=== PATIENT | male | born 1980 | race Caucasian/White ===

== ENCOUNTER 2018-12-17 20:25 | Emergency (ER) | payer SELFPAY ==
[2018-12-17] MEDS ORDERED: Ketorolac Tromethamine 30 MG/ML VIAL ONE (20:48)
--- NOTE | 2018-12-17 21:10 | RAD ---
LEFT SHOULDER THREE VIEW 12/17/18 HISTORY: Shoulder pain. COMPARISON: None. FINDINGS: There is likely an old proximal humeral metadiaphyseal fracture. Possibly some heterotopic ossificati on and periosteal new bone formation on the lateral margin of the humerus in expected location of the deltoid insertion. Glenohumeral alignment is normal. Acromioclavicular joint is normal. The visualized ribs are unremark able. IMPRESSION: Evidence of prior trauma to the left humerus. If there is no history of prior trauma or fracture, a followup CT or MRI is recommended with contrast. POS: JULIETTE
== END 2018-12-17 21:57 | disposition home or self-care (01) ==
LOC: ERS 20:25
DX: M25.512 Pain in left shoulder (principal); F17.210 Nicotine dependence, cigarettes, uncomplicated; Z79.899 Other long term (current) drug therapy
CPT/HCPCS: 96372; J1885

== ENCOUNTER 2021-03-24 14:35 | Emergency (ER) | payer SELFPAY ==
[2021-03-24] MEDS ORDERED: Lidocaine Viscous Sol 2% 15 ml UD Cup ONE (15:07)
[2021-03-24] MEDS ORDERED: Mag-Al 1200 mg/1200 mg/30 ML UDCUP ONE (15:07)
[2021-03-24 15:33] LABS: #Basophils 0.1 thou/uL (0.0-0.2); #Eosinphils 0.2 thou/uL (0.0-0.7); #Lymphocytes 1.8 thou/uL (1.20-3.40); #Monocytes 1.4 thou/uL (0.11-0.59); %Basophils 0.4 % (0.0-1.0); %Eosinophils 1.4 % (0.0-10.0); %Lymphocytes 12.4 % (21.0-51.0); %Monocytes 9.7 % (0.0-10.0); %Neutrophils 76.2 % (42.0-75.0); Hemoglobin 15.7 g/dL (14.0-18.0); Mean Corpuscular HGB CONC 33.7 g/dL (32.0-36.0); Mean Corpuscular Volume 91.8 fL (78.0-98.0); RBC Distribution Width 11.8 % (11.5-14.5); Red Blood Cell (RBC) Count 5.08 mill/uL (4.70-6.10); White Blood Cell (WBC) Count 14.5 thou/uL (4.8-10.8)
[2021-03-24 15:46] LABS: ALT (SGPT) 14 U/L (8-55); AST (SGOT) 17 U/L (5-34); Albumin 4.1 g/dL (3.5-5.0); Alkaline Phosphatase 99 U/L (40-110); Anion Gap 14 mmol/L (10-20); BUN (Urea Nitrogen) 11 mg/dL (8.9-20.6); Calc. Creatinine Clearance 0 mL/min (70-130); Calcium 9.1 mg/dL (7.8-10.44); Carbon Dioxide 22 mmol/L (22-29); Chloride 106 mmol/L (98-107); Globulin 3.5 g/dL (2.4-3.5); Glucose 98 mg/dL (70-105); Lipase 5 U/L (8-78); Potassium 4.3 mmol/L (3.5-5.1); Protein, Total 7.6 g/dL (6.0-8.3); Sodium 138 mmol/L (136-145)
[2021-03-24 15:51] LABS: Band 1 % (5-11); Lymphocytes 15 % (21-51); MDiff Complete? YES; Mean Platelet Volume 9.2 fL (7.4-10.4); Monocytes 9 % (0-10); Neutrophil 73 % (42-75); Platelet Count 182 thou/uL (130-400); Platelet Morphology Comment Appears Adequate; RBC Morphology Normal; Reactive Lymphocytes 1 % (0-10)
== END 2021-03-24 16:32 | disposition home or self-care (01) ==
LOC: ERS 14:35
DX: K21.9 Gastro-esophageal reflux disease without esophagitis (principal); J15.9 Unspecified bacterial pneumonia; F17.210 Nicotine dependence, cigarettes, uncomplicated
CPT/HCPCS: 71045; 76705; 80053; 83690; 83880; 84484; 85025; 93005

== ENCOUNTER 2021-04-27 21:07 | Inpatient (IN) | payer MEDICAID, SELFPAY ==
[2021-04-27 21:43] LABS: #Basophils 0.1 thou/uL (0.0-0.2); #Eosinphils 0.4 thou/uL (0.0-0.7); #Lymphocytes 2.8 thou/uL (1.20-3.40); #Monocytes 0.7 thou/uL (0.11-0.59); %Basophils 0.7 % (0.0-1.0); %Eosinophils 3.2 % (0.0-10.0); %Lymphocytes 23.2 % (21.0-51.0); %Monocytes 6.1 % (0.0-10.0); %Neutrophils 66.8 % (42.0-75.0); Hemoglobin 16.4 g/dL (14.0-18.0); Mean Corpuscular HGB CONC 33.8 g/dL (32.0-36.0); Mean Corpuscular Hemoglobin 30.5 pg (27.0-31.0); Mean Platelet Volume 8.3 fL (7.4-10.4); Platelet Count 262 thou/uL (130-400); RBC Distribution Width 11.9 % (11.5-14.5); Red Blood Cell (RBC) Count 5.39 mill/uL (4.70-6.10)
[2021-04-27 22:06] LABS: ALT (SGPT) 21 U/L (8-55); AST (SGOT) 23 U/L (5-34); Albumin 4.7 g/dL (3.5-5.0); Alkaline Phosphatase 117 U/L (40-110); Anion Gap 14 mmol/L (10-20); BUN (Urea Nitrogen) 13 mg/dL (8.9-20.6); Bilirubin, Total 0.5 mg/dL (0.2-1.2); Calc. Creatinine Clearance 0 mL/min (70-130); Calcium 9.7 mg/dL (7.8-10.44); Carbon Dioxide 25 mmol/L (22-29); Chloride 108 mmol/L (98-107); Glucose 89 mg/dL (70-105); Potassium 4.1 mmol/L (3.5-5.1); Protein, Total 7.7 g/dL (6.0-8.3); Sodium 143 mmol/L (136-145)
[2021-04-27 22:16] LABS: CK (CPK) 108 U/L (30-200); Lipase 11 U/L (8-78)
[2021-04-27] MEDS ORDERED: Nitroglycerin 0.4 MG TAB 1 EACH ONE (22:23)
[2021-04-27] MEDS ORDERED: Aspirin Chewable 81 MG TAB ONE (22:23)
[2021-04-27 22:28] LABS: CKMB 3.3 ng/mL (0-6.6)
[2021-04-27 23:49] LABS: SARS-CoV-2 NAA Rapid Test Not Detected (NotDetected)
[2021-04-27] MEDS ORDERED: Morphine 2 MG/ML VIAL SLOW IVP PRN (23:51)
[2021-04-28] MEDS ORDERED: Acetaminophen 325 MG TAB PO PRN (00:17)
[2021-04-28] MEDS ORDERED: Ondansetron PF 4 MG/2 ML Vial IVP PRN (00:17)
[2021-04-28] MEDS ORDERED: Ondansetron ODT 4 MG TAB PO PRN (00:17)
[2021-04-28] MEDS ORDERED: Enoxaparin Sodium 80 MG/0.8 ML SYRINGE SC SCH ×2 (01:15→09:00)
[2021-04-28 01:36] LABS: Amphetamine Not Detected (NotDetected); Barbiturates Screen Not Detected (NotDetected); Benzodiazepine Screen Not Detected (NotDetected); Cocaine Metabolite Screen Not Detected (NotDetected); Medtox Control Line Valid? VALID (VALID); Medtox Reader # READER 4; Methadone Not Detected (NotDetected); Methamphetamine Not Detected (NotDetected); Opiate Screen Not Detected (NotDetected); Oxycodone Screen Not Detected (NotDetected); Phencyclidine (PCP) Not Detected (NotDetected); THC/Cannabinoid Screen Not Detected (NotDetected); Tricyclic Screen Not Detected (NotDetected)
[2021-04-28 01:55] LABS: Troponin I 1.847 ng/mL (< 0.028)
[2021-04-28] MEDS ORDERED: Clopidogrel Bisulfate 300 MG TAB PO SCH (02:15)
[2021-04-28 02:24] VITALS: BMI 30.4
[2021-04-28 03:26] LABS: #Basophils 0.1 thou/uL (0.0-0.2); #Eosinphils 0.5 thou/uL (0.0-0.7); #Lymphocytes 3.8 thou/uL (1.20-3.40); #Monocytes 0.8 thou/uL (0.11-0.59); #Neutrophils 7.3 thou/uL (1.40-6.50); %Basophils 0.9 % (0.0-1.0); %Eosinophils 4.3 % (0.0-10.0); %Lymphocytes 30.1 % (21.0-51.0); %Monocytes 6.4 % (0.0-10.0); %Neutrophils 58.3 % (42.0-75.0); Hemoglobin 15.1 g/dL (14.0-18.0); Mean Corpuscular HGB CONC 34.7 g/dL (32.0-36.0); Mean Corpuscular Hemoglobin 31.3 pg (27.0-31.0); Mean Corpuscular Volume 90.3 fL (78.0-98.0); Platelet Count 244 thou/uL (130-400); Red Blood Cell (RBC) Count 4.82 mill/uL (4.70-6.10); White Blood Cell (WBC) Count 12.5 thou/uL (4.8-10.8)
[2021-04-28 03:49] LABS: Anion Gap 14 mmol/L (10-20); BUN (Urea Nitrogen) 15 mg/dL (8.9-20.6); Calc. Creatinine Clearance 104 mL/min (70-130); Calcium 9.2 mg/dL (7.8-10.44); Carbon Dioxide 27 mmol/L (22-29); Chloride 107 mmol/L (98-107); Glucose 94 mg/dL (70-105); Potassium 3.5 mmol/L (3.5-5.1); Sodium 144 mmol/L (136-145)
[2021-04-28 03:59] LABS: Troponin I 2.962 ng/mL (< 0.028)
[2021-04-28] MEDS: Aspirin Chewable 81 MG TAB PO SCH ×2 (07:59→08:35)
[2021-04-28] MEDS ORDERED: Iopamidol 370 76% 100 ML VIAL ONE (10:02)
[2021-04-28] MEDS: Nitroglycerin 2% Ointment 1 INCH/1 GM Packet TOP SCH ×2 (11:58→21:00)
[2021-04-28] MEDS ORDERED: Atorvastatin Calcium 40 MG TAB PO SCH (13:15)
[2021-04-28] MEDS ORDERED: Heparin 10,000 UNITS/ 10 ML VIAL ONE (14:15)
[2021-04-28] MEDS ORDERED: Verapamil 5 MG/2 ML VIAL ONE (14:15)
[2021-04-28] MEDS ORDERED: Communication Order-Pharmacy FS SCH (14:15)
[2021-04-28] MEDS ORDERED: Lidocaine 1% (PF) 30 ML VIAL ONE (14:16)
[2021-04-28] MEDS ORDERED: Nitroglycerin 100MG/250ML BOT 250 ML ONE (14:16)
[2021-04-28] MEDS ORDERED: Sodium Chloride 0.9% 200 ML IV PRN (15:36)
[2021-04-28] MEDS ORDERED: Nitroglycerin 0.4 MG TAB (25 Tab Bottle) SL PRN (15:36)
[2021-04-28] MEDS ORDERED: Acetaminophen/Codeine 30-300mg Tablet PO PRN ×2 (15:36)
[2021-04-28] MEDS ORDERED: Sodium Chloride 0.9% 1,000 ML IV SCH (16:30)
[2021-04-29 05:19] LABS: Hemoglobin A1c 4.9 % (4.0-6.0)
[2021-04-29 05:31] LABS: Cardiac Risk 4.5 (Less than 4.5)
[2021-04-29] MEDS: Nitroglycerin 2% Ointment 1 INCH/1 GM Packet TOP SCH (08:09)
[2021-04-29] MEDS: Aspirin Chewable 81 MG TAB PO SCH (08:09)
[2021-04-29 16:27] VITALS: BP 113/64; TEMP 97.9
[2021-04-29] MEDS ORDERED: Atorvastatin Calcium 40 MG TAB PO SCH (21:00)
== END 2021-04-29 16:25 | disposition home or self-care (01) | DRG 287 ==
LOC: ERS 21:07 → 2NO 22:48
PROVIDERS: ADMIT Student in an Organized Health Care Education/Training Program; ATTEND Internal Medicine
PROC: 4A023N7 Measurement of Cardiac Sampling and Pressure, Left Heart, Percutaneous Approach (ICD-10-PCS; principal; 2021-04-28)
PROC: B2111ZZ Fluoroscopy of Multiple Coronary Arteries using Low Osmolar Contrast (ICD-10-PCS; 2021-04-28)
PROC: B2141ZZ Fluoroscopy of Right Heart using Low Osmolar Contrast (ICD-10-PCS; 2021-04-28)
PROC: 4A033BC Measurement of Arterial Pressure, Coronary, Percutaneous Approach (ICD-10-PCS; 2021-04-28)
DX: I24.8 Other forms of acute ischemic heart disease (principal); F19.10 Other psychoactive substance abuse, uncomplicated; F17.210 Nicotine dependence, cigarettes, uncomplicated; D72.829 Elevated white blood cell count, unspecified; Z20.822 Contact with and (suspected) exposure to COVID-19; Z88.0 Allergy status to penicillin; Z79.899 Other long term (current) drug therapy; Z91.19 Patient's noncompliance with other medical treatment and regimen
CPT/HCPCS: 36415; 71045; 80048; 80053; 80061; 80306; 82550; 82553; 83036; 83690; 83880; 84484; 85025; 93005; 93306; 93458; 94760; J1644; J1650; J2001; J2270; Q0162; Q9967; U0002; U0005